=== PATIENT | female | born 1980 | race Caucasian/White ===

== ENCOUNTER 2017-01-18 19:47 | Emergency (ER) | payer SELFPAY ==
[2017-01-18 21:40] LABS: Bilirubin,Urine NEG (Negative); Blood,Urine NEG (Negative); Ketones,Urine NEG (Negative); Leukocyte Esterase,Urine NEG (Negative); Mucus,Urine 1+ /HPF; Nitrite,Urine NEG (Negative); Protein,Urine <15 mg/dL mg/dL (Negative); Urobilinogen,Urine < 2.0 mg/dL (<2.0); WBC,Urine < 1.0 /HPF (0.0-6.0)
[2017-01-18] MEDS ORDERED: VALIUM PO ONE (23:28)
[2017-01-18] MEDS ORDERED: MOTRIN PO ONE (23:28)
[2017-01-18] MEDS ORDERED: NORCO 5/325 PO ONE (23:28)
--- NOTE | 2017-01-18 23:54 | Emergency Department Report ---
HPI - General Chief Complaint: Pain General Time Seen by Provider: 01/18/17 23:16 - HPI HPI: 36-year-old female presents today complaining of left-sided back pain 3 days that worsened today. Describes her pain as 9 out of 10 spasm-like pain that is worse with movement. Patient states that earlier today she heard a pop in her back and felt as if there was warm fluid draining down her back. Denies fever, chills, nausea, vomiting, chest pain, shortness of breath, abdominal pain. Denies painful urination, increased urinary frequency or urgency, blood in urine. Denies history of kidney stones or renal cysts. Patient admits to strenuous activity 2 days ago which lead to worsening of symptoms. ED Past Medical Hx - Past Medical History Previous Medical History?: No - Surgical History Past Surgical History?: No - Social History Smoking Status: Never Smoker Substance Use Type: None - Medications Home Medications: Home Medications Medication Instructions Recorded Confirmed Last Taken Type Cyclobenzaprine [Flexeril] 10 mg PO TID PRN #20 tablet 01/19/17 Unknown Rx Naproxen [Naprosyn] 500 mg PO BID #30 tablet 01/19/17 Unknown Rx ED Review of Systems ROS: Stated complaint: L SIDE FLANK/BACK PAIN Other details as noted in HPI Constitutional: denies: chills, fever, malaise Eyes: denies: eye pain ENT: denies: ear pain, throat pain, congestion Respiratory: denies: cough, shortness of breath, wheezing Cardiovascular: denies: chest pain, palpitations Endocrine: no symptoms reported Gastrointestinal: denies: abdominal pain, nausea, vomiting Musculoskeletal: back pain Neurological: denies: headache, weakness, numbness, paresthesias Physical Exam - Physical Exam Vital Signs: Vital Signs 01/18/17 19:59 Temperature 98.8 F Pulse Rate 96 H Respiratory 18 Rate Blood Pressure 133/82 Blood Pressure 133/82 [Left] O2 Sat by Pulse 99 Oximetry Physical Exam: GENERAL: The patient is well-developed and well-nourished. Patient is in NAD. HEAD: Normocephalic. Atraumatic. NECK: Full range of motion. No midline or paraspinal tenderness to palpation. BACK: Full ROM. No midline or paraspinal tenderness to palpation of thoracic or lumbar region. No tenderness to palpation of sciatic notch. Negative straight leg raise bilaterally. CHEST/LUNGS: Clear to auscultation throughout. HEART/CARDIOVASCULAR: Regular rate and rhythm. No murmurs, rubs or gallops. ABDOMEN: Abdomen is soft, nontender. Bowel sounds normoactive. No guarding or rebound tenderness. Negative for CVA tenderness bilaterally. EXTREMITIES: Peripheral pulses intact. Capillary refill less than 2 seconds. NEURO: Alert and oriented x 3. Normal gait. ED Course Vital Signs 01/18/17 19:59 Temperature 98.8 F Pulse Rate 96 H Respiratory 18 Rate Blood Pressure 133/82 Blood Pressure 133/82 [Left] O2 Sat by Pulse 99 Oximetry - Reevaluation(s) Reevaluation #1: 01/19/17 01:30 The time of reevaluation, the patient reports complete symptomatic relief. ED Medical Decision Making - Lab Data Vital Signs 01/18/17 19:59 Temperature 98.8 F Pulse Rate 96 H Respiratory 18 Rate Blood Pressure 133/82 Blood Pressure 133/82 [Left] O2 Sat by Pulse 99 Oximetry Lab Results 01/18/17 Range/Units 21:00 Urine Color Yellow (Yellow) Urine Turbidity Clear (Clear) Urine pH 5.0 (5.0-7.0) Ur Specific [place] 1.021 (1.003-1.030) Urine Protein <15 mg/dl (Negative) mg/dL Urine Glucose (UA) Neg (Negative) mg/dL Urine Ketones Neg (Negative) mg/dL Urine Blood Neg (Negative) Urine Nitrite Neg (Negative) Ur Reducing Substances Not Reportable Urine Bilirubin Neg (Negative) Urine Ictotest Not Reportable Urine Urobilinogen < 2.0 (<2.0) mg/dL Ur Leukocyte Esterase Neg (Negative) Urine WBC (Auto) < 1.0 (0.0-6.0) /HPF Urine RBC (Auto) 2.0 (0.0-6.0) /HPF U Epithel Cells (Auto) < 1.0 (0-13.0) /HPF Urine Mucus 1+ /HPF Urine HCG, Qual Negative (Negative) - Medical Decision Making 36-year-old female presents today with left-sided back pain 3 days that worsened today. Her urinalysis is within normal limits. The patient was given a muscle relaxer and pain medication and reported symptomatic relief post medication. Patient is in no acute distress at this time. She will be discharged home and is encouraged to follow up with a primary care provider. She will be sent home on Flexeril and naproxen and is encouraged to return to the emergency room for any worsening symptoms. Critical care attestation.: If time is entered above; I have spent that time in minutes in the direct care of this critically ill patient, excluding procedure time. ED Disposition Clinical Impression: Muscle strain Back pain Qualifiers: Back pain location: thoracic back pain Chronicity: acute Back pain laterality: left Qualified Code(s): M54.6 - Pain in thoracic spine Disposition: DISCHARGED TO HOME OR SELFCARE Is pt being admited?: No Does the pt Need Aspirin: No Condition: Stable Instructions: Muscle Strain (ED) Additional Instructions: Follow-up with primary care provider. Return to the emergency department if symptoms worsen. Prescriptions: Cyclobenzaprine [Flexeril] 10 mg PO TID PRN #20 tablet PRN Reason: Muscle Spasm Naproxen [Naprosyn] 500 mg PO BID #30 tablet Referrals: PRIMARY MD BECKY [Primary Care Provider] - 3-5 Days MARISEL RDZ MD [Staff Physician] - 3-5 Days Forms: Work/School Release Form(ED), Accompanied Note Time of Disposition: 01:41
[2017-01-19 02:35] VITALS: BP 113/57
== END 2017-01-19 01:50 | disposition home or self-care (01) ==
LOC: ED 19:47
DX: S29.019A Strain of muscle and tendon of unspecified wall of thorax, initial encounter (principal); X58.XXXA Exposure to other specified factors, initial encounter; Y93.89 Activity, other specified; Y99.8 Other external cause status; Y92.89 Other specified places as the place of occurrence of the external cause
CPT/HCPCS: 81001; 81025; 87086; 99282